=== PATIENT | female | born 1940 | race Caucasian/White ===

== ENCOUNTER 2019-09-14 11:46 | Emergency (ER) | payer OTHER ==
[~2019-09-14] VITALS: Ht 167.6 cm; Wt 84.5 kg
[2019-09-14 12:17] LABS: BASOPHILS # (AUTO) 0.1 X10'3 (0-0.2); BASOPHILS % (AUTO) 0.8 % (0-1); EOSINOPHILS # (AUTO) 0.1 X10'3 (0-0.9); EOSINOPHILS % (AUTO) 1.1 % (0-6); HEMATOCRIT 41.5 % (35.0-45.0); HEMOGLOBIN 13.8 g/dl (12.0-16.0); LYMPHOCYTES # (AUTO) 1.1 X10'3 (1.1-4.8); LYMPHOCYTES % (AUTO) 13.2 % (21-51); MEAN CORPUSCULAR HEMOGLOBIN 29.6 PG (27.0-31.0); MEAN CORPUSCULAR HGB CONC 33.2 g/dL (33.0-36.5); MEAN CORPUSCULAR VOLUME 89.1 FL (78-98); MEAN PLATELET VOLUME 10.2 FL (7.4-10.4); MONOCYTES # (AUTO) 0.4 X10'3 (0-0.9); MONOCYTES % (AUTO) 4.9 % (2-12); NEUTROPHILS # (AUTO) 6.9 X10'3 (1.8-7.7); PLATELET COUNT 205 X10'3 (140-440); RED BLOOD COUNT 4.66 X10'6 (4.20-5.60); RED CELL DISTRIBUTION WIDTH 14.4 % (11.5-14.5); WHITE BLOOD COUNT 8.6 X10'3 (4.5-11.0)
[2019-09-14 12:35] LABS: ALANINE AMINOTRANSFERASE 13 U/L (12-78); ALBUMIN 3.8 G/DL (3.4-5.0); ALKALINE PHOSPHATASE 82 IU/L (46-116); ANION GAP 8 (8-16); ASPARTATE AMINO TRANSFERASE 15 U/L (10-37); BILIRUBIN,TOTAL 0.8 MG/DL (0.1-1.0); BLOOD UREA NITROGEN 23 MG/DL (7-18); BUN/CREATININE RATIO 15.6 (6.6-38.0); CALCIUM 9.7 MG/DL (8.5-10.1); CHLORIDE 107 MMOL/L (99-107); CREATININE 1.47 MG/DL (0.40-0.90); GLUCOSE 151 MG/DL (70-104); POTASSIUM 4.6 MMOL/L (3.5-5.1); SODIUM 138 MMOL/L (135-145); TOTAL CARBON DIOXIDE 22.9 MMOL/L (24-32); TOTAL PROTEIN 7.7 G/DL (6.4-8.2); eGFR 34 ML/MIN
[2019-09-14 12:38] LABS: TROPONIN I < 0.04 NG/ML (0.0-0.05)
[2019-09-14] MEDS ORDERED: normal saline 1000ML IV soln IVB ONE (13:10)
[2019-09-14 13:15] LABS: CREATINE KINASE 65 U/L (26-192)
[2019-09-14] MEDS ORDERED: aspirin 81mg tablet.DR PO ONE (13:25)
[2019-09-14 13:30] VITALS: BP_DIAS 84
[2019-09-14] MEDS ORDERED: LISI10TA4 PO (13:30)
[2019-09-14] MEDS ORDERED: METF-950 PO (13:30)
[2019-09-14] MEDS ORDERED: METO25TA6 PO (13:30)
[2019-09-14] MEDS ORDERED: NPH,100V SQ (13:30)
[2019-09-14 14:30] VITALS: BP_SYST 153
== END 2019-09-14 15:40 | disposition home or self-care (01) ==
LOC: ER 11:46
DX: R29.810 Facial weakness (principal); M21.41 Flat foot [pes planus] (acquired), right foot; I25.10 Atherosclerotic heart disease of native coronary artery without angina pectoris; Z88.2 Allergy status to sulfonamides; Z79.899 Other long term (current) drug therapy
CPT/HCPCS: 36415; 70450; 71045; 80053; 82550; 84484; 85025; 93005; 93880; 99285; J7030

== ENCOUNTER → 2019-12-08 | Outpatient (CLI) | payer OTHER ==
[2019-12-08] VITALS (21 sets, daily range): BP systolic 115–147; BP diastolic 58–93
[~2019-12-08] MED LIST: LISI10TA4 PO; METF-950 PO; METO25TA6 PO; NPH,100V SQ
== END | disposition home or self-care (01) ==
LOC: CARD DIAG 10:06
PROVIDERS: ATTEND Internal Medicine Cardiovascular Disease
DX: R42 Dizziness and giddiness (principal)
CPT/HCPCS: 93660

== ENCOUNTER 2023-11-14 11:39 | Inpatient (IN) | payer MEDICARE, OTHER ==
[2023-11-14] VITALS (11 sets, daily range): BP systolic 101–145; BP diastolic 49–96; PULSE 97–106; RESP 18–30; TEMP 96.9–98.5; O2SAT 96
[~2023-11-14] VITALS: Ht 162.6 cm; Wt 81.4 kg
[~2023-11-14 11:39] MED LIST changes: +LISI10TA27 PO; -LISI10TA4 PO; +LOP25T PO; +METF-1203 PO; -METF-950 PO; -METO25TA6 PO
[2023-11-14 12:29] LABS: BASOPHILS # (AUTO) 0.1 X10'3 (0-0.2); BASOPHILS % (AUTO) 0.7 % (0-1); EOSINOPHILS % (AUTO) 0.3 % (0-6); HEMATOCRIT 23.3 % (35.0-45.0); LYMPHOCYTES # (AUTO) 0.6 X10'3 (1.1-4.8); LYMPHOCYTES % (AUTO) 4.8 % (21-51); MEAN CORPUSCULAR HEMOGLOBIN 23.5 PG (27.0-31.0); MEAN CORPUSCULAR HGB CONC 28.2 g/dL (33.0-36.5); MEAN CORPUSCULAR VOLUME 83.1 FL (78-98); MEAN PLATELET VOLUME 9.4 FL (7.4-10.4); MONOCYTES # (AUTO) 0.7 X10'3 (0-0.9); MONOCYTES % (AUTO) 5.1 % (2-12); NEUTROPHILS # (AUTO) 11.7 X10'3 (1.8-7.7); NEUTROPHILS % (AUTO) 89.1 % (42-75); PLATELET COUNT 316 X10'3 (140-440); RED CELL DISTRIBUTION WIDTH 19.1 % (11.5-14.5); WHITE BLOOD COUNT 13.2 X10'3 (4.5-11.0)
[2023-11-14 12:38] LABS: ALANINE AMINOTRANSFERASE 7 U/L (12-78); ALBUMIN/GLOBULIN RATIO 0.7 (1.1-1.5); ALKALINE PHOSPHATASE 108 IU/L (46-116); ANION GAP 15 (8-16); ASPARTATE AMINO TRANSFERASE 9 U/L (10-37); BILIRUBIN,TOTAL 2.2 MG/DL (0.1-1.0); BLOOD UREA NITROGEN 37 MG/DL (7-18); BUN/CREATININE RATIO 18.8 (10.0-20.0); CALCIUM 9.1 MG/DL (8.5-10.1); CHLORIDE 98 MMOL/L (99-107); CREATININE 1.97 MG/DL (0.40-0.90); GLUCOSE 283 MG/DL (70-104); SODIUM 132 MMOL/L (135-145); TOTAL CARBON DIOXIDE 19.2 MMOL/L (24-32); TOTAL PROTEIN 7.5 G/DL (6.4-8.2); eCRCL 19 ML/MIN; eGFR 24 ML/MIN
[2023-11-14 12:47] LABS: PRO BRAIN NATRIURETIC PEPTIDE 10360 PG/ML (0-450)
[2023-11-14 12:52] LABS: HEMOGLOBIN 6.6 g/dl (12.0-16.0)
[2023-11-14 12:56] LABS: ABG HCO3 16.1 mmol/L (21.0-28.0); ABG OXYGEN SATURATION 94.4 % (94.0-98.0); ABG PCO2 (T) 21.8 mmHg (32.0-45.0); ABG PH (T) 7.479 (7.350-7.450); ABG PO2 (T) 67.3 mmHg (83.0-108.0); ALLEN'S TEST POSITIVE; FCOHb 1.2 % (0.5-1.5); FHHb 5.5 % (0.0-5.0); FLOW 1 L/min; FMetHb 0.3 % (0.0-1.5); MODE NASAL CANNULA; PATIENT TEMPERATURE 35.5; TOTAL HEMOGLOBIN 6.8 G/dl (12.0-16.0)
[2023-11-14 13:06] LABS: PLATELET ESTIMATE NORMAL
[2023-11-14 13:08] LABS: BURR CELLS 1+; ELLIPTOCYTES FEW; POLYCHROMASIA 1+
[2023-11-14 13:09] LABS: ANISOCYTOSIS 2+
[2023-11-14] MEDS ORDERED: pantoprazole 40mg IV 80 MG in normal saline 100ml IV soln 100 ML IV ONE (14:25)
[2023-11-14] MEDS: pantoprazole 40 MG vial IV ONE (14:33)
[2023-11-14] MEDS: pantoprazole 40MG/NS 100ML BAG 100 ML IV ONE (14:39)
[2023-11-14] MEDS ORDERED: ATOR-2 PO (14:48)
[2023-11-14] MEDS ORDERED: SITA50TA7 PO (14:48)
[2023-11-14] MEDS ORDERED: FERR325T29 PO (14:48)
[2023-11-14] MEDS ORDERED: APIX2.5T PO (14:48)
[2023-11-14] MEDS ORDERED: LANTUS SQ (14:51)
[2023-11-14] MEDS ORDERED: vitamin D3 PO (14:51)
[2023-11-14] MEDS ORDERED: vitamin E PO (14:51)
[2023-11-14] MEDS ORDERED: INSU100C10 SQ (14:51)
[2023-11-14] MEDS ORDERED: potassium Cl 20 mEq SR tablet PO PRN ×2 (15:15)
[2023-11-14] MEDS ORDERED: magnesium sulf-water 4G/100mL 100 ML IV PRN (15:15)
[2023-11-14] MEDS ORDERED: magnesium hydroxide 30ml (MOM) UD suspension PO PRN (15:15)
[2023-11-14] MEDS ORDERED: potassium Cl 40MEQ/1/2NS 520ml 520 ML IV PRN (15:15)
[2023-11-14] MEDS ORDERED: magnesium sulf-water 2g/50mL 50 ML IV PRN (15:15)
[2023-11-14] MEDS ORDERED: acetaminophen 650mg rectal suppository RC PRN (15:15)
[2023-11-14] MEDS ORDERED: diphenhydrAMINE 25mg capsule PO PRN (15:15)
[2023-11-14] MEDS ORDERED: HYDROcodone/acetaminophen 5mg/325mg tablet PO PRN (15:15)
[2023-11-14] MEDS ORDERED: HYDROcodone/acetaminophen 10/325mg tab PO PRN (15:15)
[2023-11-14] MEDS ORDERED: bisacodyl 10mg suppository rectal RC PRN (15:15)
[2023-11-14] MEDS ORDERED: magnesium Cl slow-release 64mg tablet PO PRN (15:15)
[2023-11-14] MEDS ORDERED: acetaminophen 325mg tablet PO PRN (15:15)
[2023-11-14] MEDS: normal saline 1000ml 1,000 ML IV SCH (15:15)
[2023-11-14] MEDS ORDERED: mag hydrox/Alum hydrox/simeth 30ml oral suspension PO PRN (15:15)
[2023-11-14] MEDS ORDERED: ASPI81TA52 PO (15:23)
[2023-11-14] MEDS ORDERED: OMEP40CA21 PO (15:23)
[2023-11-14] MEDS ORDERED: vitamin A PO (15:23)
[2023-11-14] MEDS ORDERED: ASCO500C17 PO (15:23)
[2023-11-14 16:32] LABS: HEMOGLOBIN A1C 6.1 % (4.5-6.2)
[2023-11-14] MEDS ORDERED: ASCO-22 PO (17:33)
[2023-11-14] MEDS ORDERED: FER325T PO (17:33)
[2023-11-14] MEDS: aspirin 81mg, enteric-coated 1 TAB TABLET.DR PO SCH (18:25)
[2023-11-14] MEDS ORDERED: DEXTROSE 15 GM of carb/4 tabs (each vial/BOTTLE has 4 tablets) PO PRN ×2 (18:55)
[2023-11-14] MEDS: PERFLUTREN PROTEIN-A MICROSPHR (Optison) 0.22 MG/ML 3ML VIAL IV ONE (19:53)
[2023-11-14] MEDS: ascorbic acid 500mg tablet PO SCH (20:00)
[2023-11-14] MEDS: ferrous sulfate 325mg tablet PO SCH (20:00)
[2023-11-14] MEDS: pantoprazole 40mg Tablet.DR PO SCH (20:00)
[2023-11-14] MEDS: docusate sod 100mg capsule PO SCH (20:00)
[2023-11-14 20:07] LABS: % IRON SATURATION 4 % (11-46); IRON 11 UG/DL (49-151); TOTAL IRON BINDING CAPACITY 304 UG/DL (259-388)
[2023-11-14] MEDS: K and/or MAG REPLACEMENT MC SCH (20:08)
[2023-11-14 20:17] LABS: BILIRUBIN,DIRECT 0.5 MG/DL (0-0.3)
[2023-11-14] MEDS: pantoprazole 40mg Tablet.DR PO ONE (21:26)
[2023-11-14] MEDS: ferrous sulfate 325mg tablet PO ONE (21:26)
[2023-11-14] MEDS: ascorbic acid 500mg tablet PO ONE (21:26)
[2023-11-14] MEDS: insulin glargine (Lantus) pen - multi-dose SQ SCH (21:30)
[2023-11-14] MEDS: INSULIN LISPRO 100 UNIT/ML INSULN.PEN MULTI-DOSE SQ SCH (21:31)
[2023-11-14 22:37] LABS: HEMATOCRIT 28.6 % (35.0-45.0); MEAN CORPUSCULAR HEMOGLOBIN 26.8 PG (27.0-31.0); MEAN CORPUSCULAR HGB CONC 31.6 g/dL (33.0-36.5); MEAN PLATELET VOLUME 9.5 FL (7.4-10.4); PLATELET COUNT 234 X10'3 (140-440); RED BLOOD COUNT 3.37 X10'6 (4.20-5.60); RED CELL DISTRIBUTION WIDTH 17.5 % (11.5-14.5); WHITE BLOOD COUNT 12.1 X10'3 (4.5-11.0)
[2023-11-15] VITALS (20 sets, daily range): BP systolic 100–120; BP diastolic 48–61; PULSE 70–98; RESP 16–28; TEMP 97.2–98.6; O2SAT 90–98
[2023-11-15 06:54] LABS: EOSINOPHILS # (AUTO) 0.3 X10'3 (0-0.9); HEMATOCRIT 28.5 % (35.0-45.0)
[2023-11-15 06:58] LABS: BASOPHILS # (AUTO) 0.1 X10'3 (0-0.2); BASOPHILS % (AUTO) 0.8 % (0-1); EOSINOPHILS % (AUTO) 2.9 % (0-6); HEMOGLOBIN 9.1 g/dl (12.0-16.0); LYMPHOCYTES # (AUTO) 1.1 X10'3 (1.1-4.8); LYMPHOCYTES % (AUTO) 10.9 % (21-51); MEAN CORPUSCULAR HEMOGLOBIN 26.9 PG (27.0-31.0); MEAN CORPUSCULAR HGB CONC 31.9 g/dL (33.0-36.5); MEAN CORPUSCULAR VOLUME 84.2 FL (78-98); MEAN PLATELET VOLUME 9.8 FL (7.4-10.4); MONOCYTES # (AUTO) 0.8 X10'3 (0-0.9); MONOCYTES % (AUTO) 7.6 % (2-12); NEUTROPHILS # (AUTO) 8.1 X10'3 (1.8-7.7); NEUTROPHILS % (AUTO) 77.8 % (42-75); PLATELET COUNT 250 X10'3 (140-440); RED BLOOD COUNT 3.38 X10'6 (4.20-5.60); RED CELL DISTRIBUTION WIDTH 17.3 % (11.5-14.5); WHITE BLOOD COUNT 10.4 X10'3 (4.5-11.0)
[2023-11-15 07:33] LABS: ALANINE AMINOTRANSFERASE 11 U/L (12-78); ALBUMIN 2.6 G/DL (3.4-5.0); ALBUMIN/GLOBULIN RATIO 0.7 (1.1-1.5); ALKALINE PHOSPHATASE 91 IU/L (46-116); ANION GAP 10 (8-16); ASPARTATE AMINO TRANSFERASE 13 U/L (10-37); BILIRUBIN,TOTAL 3.9 MG/DL (0.1-1.0); BLOOD UREA NITROGEN 34 MG/DL (7-18); BUN/CREATININE RATIO 19.2 (10.0-20.0); CALCIUM 8.5 MG/DL (8.5-10.1); CHLORIDE 101 MMOL/L (99-107); CHOL/HDL RATIO 2.8 (0.00-4.99); CHOLESTEROL 78 MG/DL (0-200); CREATININE 1.77 MG/DL (0.40-0.90); GLUCOSE 166 MG/DL (70-104); HDL CHOLESTEROL 28 MG/DL (35-60); LDL CHOLESTEROL 51 MG/DL (50-100); MAGNESIUM 1.9 MG/DL (1.5-2.4); PHOSPHORUS 3.5 MG/DL (2.3-4.5); POTASSIUM 3.9 MMOL/L (3.5-5.1); SODIUM 132 MMOL/L (135-145); TOTAL CARBON DIOXIDE 21.1 MMOL/L (24-32); TOTAL PROTEIN 6.6 G/DL (6.4-8.2); TRIGLYCERIDES 69 MG/DL (20-135); eCRCL 21 ML/MIN; eGFR 27 ML/MIN
[2023-11-15 07:36] LABS: ANISOCYTOSIS 1+; NUCLEATED RED BLOOD CELLS 4 /100WBC (0-0); PLATELET ESTIMATE NORMAL; TOTAL CELLS COUNTED 100
[2023-11-15 07:37] LABS: ELLIPTOCYTES 1+; GIANT PLATELET FEW; LARGE PLATELETS FEW; POLYCHROMASIA 2+
[2023-11-15 07:38] LABS: ACANTHOCYTES 1+; BURR CELLS 2+; SCHISTOCYTES FEW
[2023-11-15] MEDS: atorvastatin 20mg tablet PO SCH (08:00)
[2023-11-15] MEDS ORDERED: VITAMIN A PO SCH (08:00)
[2023-11-15] MEDS ORDERED: VITAMIN E 200 UNIT PO SCH (08:00)
[2023-11-15] MEDS: multivitamins, therapeutics tablet PO SCH (08:00)
[2023-11-15] MEDS ORDERED: simethicone 40mg/0.6ml oral drops 30ml ONE (09:00)
[2023-11-15] MEDS: furosemide 20 MG/2 ML vial IV ONE (11:08)
[2023-11-15] MEDS ORDERED: diphenhydrAMINE 50 mg/ml inj ONE (13:27)
[2023-11-15] MEDS ORDERED: MIDAZolam 1 MG/ML 5ML VIAL ONE (13:27)
[2023-11-15] MEDS ORDERED: LIDOcaine 2% Viscous 15ml cup ONE (13:27)
[2023-11-15] MEDS ORDERED: fentaNYL/PF 50MCG/1 ML 2ML syringe ONE (13:27)
[2023-11-15 19:51] LABS: BASOPHILS # (AUTO) 0.1 X10'3 (0-0.2); EOSINOPHILS # (AUTO) 0.6 X10'3 (0-0.9); HEMATOCRIT 30.3 % (35.0-45.0); LYMPHOCYTES # (AUTO) 0.9 X10'3 (1.1-4.8)
[2023-11-15 19:53] LABS: BASOPHILS % (AUTO) 0.9 % (0-1); EOSINOPHILS % (AUTO) 5.3 % (0-6); HEMOGLOBIN 9.3 g/dl (12.0-16.0); LYMPHOCYTES % (AUTO) 8.3 % (21-51); MEAN CORPUSCULAR HGB CONC 30.8 g/dL (33.0-36.5); MEAN CORPUSCULAR VOLUME 84.4 FL (78-98); MEAN PLATELET VOLUME 9.7 FL (7.4-10.4); MONOCYTES # (AUTO) 0.6 X10'3 (0-0.9); MONOCYTES % (AUTO) 5.6 % (2-12); NEUTROPHILS # (AUTO) 8.9 X10'3 (1.8-7.7); NEUTROPHILS % (AUTO) 79.9 % (42-75); PLATELET COUNT 241 X10'3 (140-440); RED BLOOD COUNT 3.59 X10'6 (4.20-5.60); RED CELL DISTRIBUTION WIDTH 17.7 % (11.5-14.5); WHITE BLOOD COUNT 11.1 X10'3 (4.5-11.0)
[2023-11-15] MEDS ORDERED: pantoprazole 40mg Tablet.DR PO SCH (20:00)
[2023-11-15] MEDS: carVEDilol 3.125mg tablet PO SCH (20:28)
[2023-11-15] MEDS: methylPREDNISolone sod succ 125mg/2ml vial IV ONE (20:28)
[2023-11-15] MEDS: methylPREDNISolone sod succ/PF 40mg inj. IV SCH (22:27)
[2023-11-15] MEDS: piperacillin/tazo 3.375gm/50ml 50 ML IV SCH (23:46)
[2023-11-16] VITALS (10 sets, daily range): BP systolic 91–102; BP diastolic 42–49; PULSE 68–105; RESP 14–23; TEMP 97–97.6; O2SAT 92–97
[2023-11-16] MEDS: furosemide 20 MG/2 ML vial IV SCH (07:24)
[2023-11-16] MEDS: EMPAGLIFLOZIN 10 MG TABLET PO SCH (07:25)
[2023-11-16] MEDS: pantoprazole 40mg Tablet.DR PO SCH (07:26)
[2023-11-16] MEDS: lisinopril 5mg tablet PO SCH (07:27)
[2023-11-16] MEDS: ferrous sulfate 325mg tablet PO SCH (07:32)
[2023-11-16 08:35] LABS: BASOPHILS % (AUTO) 0.1 % (0-1); EOSINOPHILS % (AUTO) 0 % (0-6); HEMATOCRIT 29.7 % (35.0-45.0); HEMOGLOBIN 9.3 g/dl (12.0-16.0); LYMPHOCYTES # (AUTO) 0.3 X10'3 (1.1-4.8); LYMPHOCYTES % (AUTO) 3.9 % (21-51); MEAN CORPUSCULAR HEMOGLOBIN 26.5 PG (27.0-31.0); MEAN CORPUSCULAR HGB CONC 31.4 g/dL (33.0-36.5); MEAN CORPUSCULAR VOLUME 84.2 FL (78-98); MONOCYTES # (AUTO) 0.1 X10'3 (0-0.9); MONOCYTES % (AUTO) 0.9 % (2-12); NEUTROPHILS # (AUTO) 7.9 X10'3 (1.8-7.7); NEUTROPHILS % (AUTO) 95.1 % (42-75); PLATELET COUNT 235 X10'3 (140-440); RED BLOOD COUNT 3.53 X10'6 (4.20-5.60); RED CELL DISTRIBUTION WIDTH 17.9 % (11.5-14.5); WHITE BLOOD COUNT 8.3 X10'3 (4.5-11.0)
[2023-11-16 08:40] LABS: RED BLOOD COUNT 3.47 X10'6 (4.20-5.60); RETICULOCYTE % (AUTO) 5.3 % (0.5-1.5)
[2023-11-16 09:15] LABS: ALANINE AMINOTRANSFERASE 7 U/L (12-78); ALBUMIN 2.7 G/DL (3.4-5.0); ALBUMIN/GLOBULIN RATIO 0.7 (1.1-1.5); ALKALINE PHOSPHATASE 95 IU/L (46-116); ANION GAP 12 (8-16); ASPARTATE AMINO TRANSFERASE 11 U/L (10-37); BILIRUBIN,TOTAL 2.2 MG/DL (0.1-1.0); BLOOD UREA NITROGEN 37 MG/DL (7-18); BUN/CREATININE RATIO 19.5 (10.0-20.0); CALCIUM 8.7 MG/DL (8.5-10.1); CHLORIDE 98 MMOL/L (99-107); GLUCOSE 247 MG/DL (70-104); MAGNESIUM 1.9 MG/DL (1.5-2.4); PHOSPHORUS 4.6 MG/DL (2.3-4.5); POTASSIUM 4.5 MMOL/L (3.5-5.1); SODIUM 133 MMOL/L (135-145); TOTAL CARBON DIOXIDE 22.8 MMOL/L (24-32); TOTAL PROTEIN 6.6 G/DL (6.4-8.2); eCRCL 19 ML/MIN; eGFR 25 ML/MIN
[2023-11-16 11:28] LABS: LACTATE DEHYDROGENASE 308 U/L (81-234)
[2023-11-16 14:05] LABS: BASOPHILS % (AUTO) 0.1 % (0-1); LYMPHOCYTES # (AUTO) 0.4 X10'3 (1.1-4.8); MONOCYTES # (AUTO) 0.1 X10'3 (0-0.9); NEUTROPHILS # (AUTO) 7.5 X10'3 (1.8-7.7)
[2023-11-16 14:06] LABS: EOSINOPHILS % (AUTO) 0.1 % (0-6); HEMATOCRIT 29.1 % (35.0-45.0); HEMOGLOBIN 9.1 g/dl (12.0-16.0); LYMPHOCYTES % (AUTO) 4.4 % (21-51); MEAN CORPUSCULAR HEMOGLOBIN 26.5 PG (27.0-31.0); MEAN CORPUSCULAR HGB CONC 31.3 g/dL (33.0-36.5); MEAN CORPUSCULAR VOLUME 84.8 FL (78-98); MEAN PLATELET VOLUME 10.1 FL (7.4-10.4); MONOCYTES % (AUTO) 1.2 % (2-12); NEUTROPHILS % (AUTO) 94.2 % (42-75); PLATELET COUNT 248 X10'3 (140-440); RED BLOOD COUNT 3.43 X10'6 (4.20-5.60); RED CELL DISTRIBUTION WIDTH 18.2 % (11.5-14.5)
[2023-11-16] MEDS: DOBUTamine-DoBUTrex 500mg/D5W 250 ML IV SCH (19:26)
[2023-11-16 19:50] LABS: BASOPHILS % (AUTO) 0.1 % (0-1); EOSINOPHILS % (AUTO) 0.1 % (0-6); HEMATOCRIT 29.6 % (35.0-45.0); HEMOGLOBIN 9.1 g/dl (12.0-16.0); LYMPHOCYTES # (AUTO) 0.4 X10'3 (1.1-4.8); LYMPHOCYTES % (AUTO) 3.4 % (21-51); MEAN CORPUSCULAR HEMOGLOBIN 25.5 PG (27.0-31.0); MEAN CORPUSCULAR HGB CONC 30.8 g/dL (33.0-36.5); MEAN PLATELET VOLUME 9.9 FL (7.4-10.4); MONOCYTES # (AUTO) 0.2 X10'3 (0-0.9); MONOCYTES % (AUTO) 1.6 % (2-12); NEUTROPHILS # (AUTO) 9.9 X10'3 (1.8-7.7); NEUTROPHILS % (AUTO) 94.8 % (42-75); PLATELET COUNT 264 X10'3 (140-440); RED BLOOD COUNT 3.56 X10'6 (4.20-5.60); RED CELL DISTRIBUTION WIDTH 18.2 % (11.5-14.5); WHITE BLOOD COUNT 10.5 X10'3 (4.5-11.0)
[2023-11-16] MEDS: piperacillin/tazo 3.375gm/50ml 50 ML IV SCH (23:02)
[2023-11-17] VITALS (29 sets, daily range): BP systolic 77–107; BP diastolic 34–56; PULSE 81–103; RESP 14–18; TEMP 97.3–97.9; O2SAT 94–97
[2023-11-17 08:28] LABS: BASOPHILS % (AUTO) 0.1 % (0-1); EOSINOPHILS % (AUTO) 0 % (0-6); HEMATOCRIT 28.1 % (35.0-45.0); HEMOGLOBIN 8.7 g/dl (12.0-16.0); LYMPHOCYTES # (AUTO) 0.4 X10'3 (1.1-4.8); MEAN CORPUSCULAR VOLUME 83.7 FL (78-98); MEAN PLATELET VOLUME 10.1 FL (7.4-10.4); MONOCYTES # (AUTO) 0.4 X10'3 (0-0.9); MONOCYTES % (AUTO) 2.9 % (2-12); NEUTROPHILS # (AUTO) 12.5 X10'3 (1.8-7.7); PLATELET COUNT 278 X10'3 (140-440); RED BLOOD COUNT 3.36 X10'6 (4.20-5.60); RED CELL DISTRIBUTION WIDTH 18.1 % (11.5-14.5); WHITE BLOOD COUNT 13.3 X10'3 (4.5-11.0)
[2023-11-17 08:47] LABS: ALBUMIN 2.8 G/DL (3.4-5.0); ALBUMIN/GLOBULIN RATIO 0.7 (1.1-1.5); ALKALINE PHOSPHATASE 85 IU/L (46-116); ANION GAP 13 (8-16); ASPARTATE AMINO TRANSFERASE 15 U/L (10-37); BILIRUBIN,TOTAL 1.7 MG/DL (0.1-1.0); BLOOD UREA NITROGEN 43 MG/DL (7-18); BUN/CREATININE RATIO 18.2 (10.0-20.0); CALCIUM 8.9 MG/DL (8.5-10.1); CHLORIDE 97 MMOL/L (99-107); CREATININE 2.36 MG/DL (0.40-0.90); GLUCOSE 219 MG/DL (70-104); PHOSPHORUS 5.3 MG/DL (2.3-4.5); POTASSIUM 3.5 MMOL/L (3.5-5.1); SODIUM 134 MMOL/L (135-145); TOTAL CARBON DIOXIDE 23.9 MMOL/L (24-32); TOTAL PROTEIN 6.6 G/DL (6.4-8.2); eCRCL 16 ML/MIN; eGFR 20 ML/MIN
[2023-11-17 08:48] LABS: ALANINE AMINOTRANSFERASE 6 U/L (12-78)
[2023-11-17 13:42] LABS: BASOPHILS % (AUTO) 0.1 % (0-1); EOSINOPHILS % (AUTO) 0 % (0-6); HEMOGLOBIN 8.7 g/dl (12.0-16.0); LYMPHOCYTES # (AUTO) 0.3 X10'3 (1.1-4.8); LYMPHOCYTES % (AUTO) 1.8 % (21-51); MEAN CORPUSCULAR HEMOGLOBIN 25.8 PG (27.0-31.0); MEAN CORPUSCULAR VOLUME 83.3 FL (78-98); MEAN PLATELET VOLUME 9.7 FL (7.4-10.4); MONOCYTES # (AUTO) 0.4 X10'3 (0-0.9); MONOCYTES % (AUTO) 2.5 % (2-12); NEUTROPHILS # (AUTO) 13.7 X10'3 (1.8-7.7); NEUTROPHILS % (AUTO) 95.6 % (42-75); PLATELET COUNT 272 X10'3 (140-440); RED BLOOD COUNT 3.36 X10'6 (4.20-5.60); RED CELL DISTRIBUTION WIDTH 18.7 % (11.5-14.5); WHITE BLOOD COUNT 14.3 X10'3 (4.5-11.0)
[2023-11-17] MEDS: normal saline 500ml IV soln 500 ML IV ONE (17:04)
[2023-11-17 20:45] LABS: BASOPHILS % (AUTO) 0.1 % (0-1); EOSINOPHILS % (AUTO) 0 % (0-6); HEMATOCRIT 27.4 % (35.0-45.0); HEMOGLOBIN 8.5 g/dl (12.0-16.0); LYMPHOCYTES # (AUTO) 0.2 X10'3 (1.1-4.8); MEAN CORPUSCULAR HEMOGLOBIN 25.8 PG (27.0-31.0); MEAN CORPUSCULAR VOLUME 83.3 FL (78-98); MEAN PLATELET VOLUME 9.7 FL (7.4-10.4); MONOCYTES # (AUTO) 0.2 X10'3 (0-0.9); MONOCYTES % (AUTO) 1.9 % (2-12); NEUTROPHILS # (AUTO) 11.8 X10'3 (1.8-7.7); PLATELET COUNT 257 X10'3 (140-440); RED BLOOD COUNT 3.29 X10'6 (4.20-5.60); RED CELL DISTRIBUTION WIDTH 18.9 % (11.5-14.5); WHITE BLOOD COUNT 12.3 X10'3 (4.5-11.0)
[2023-11-17] MEDS ORDERED: albumin (human) 25% 100 ML IV solution IV ONE (21:20)
[2023-11-17 21:30] LABS: PLATELET ESTIMATE NORMAL
[2023-11-17 21:31] LABS: ACANTHOCYTES 2+; ANISOCYTOSIS 2+; ELLIPTOCYTES 1+; HYPOCHROMASIA 1+; POLYCHROMASIA 1+; SCHISTOCYTES FEW
[2023-11-18] VITALS (24 sets, daily range): BP systolic 79–104; BP diastolic 32–53; PULSE 84–115; RESP 10–20; TEMP 98.6; O2SAT 92–99
[2023-11-18 00:19] LABS: BASOPHILS % (AUTO) 0 % (0-1); EOSINOPHILS % (AUTO) 0 % (0-6); HEMATOCRIT 26.6 % (35.0-45.0); HEMOGLOBIN 8.4 g/dl (12.0-16.0); LYMPHOCYTES # (AUTO) 0.3 X10'3 (1.1-4.8); LYMPHOCYTES % (AUTO) 2.2 % (21-51); MEAN CORPUSCULAR HEMOGLOBIN 26.3 PG (27.0-31.0); MEAN CORPUSCULAR HGB CONC 31.6 g/dL (33.0-36.5); MEAN CORPUSCULAR VOLUME 83.1 FL (78-98); MEAN PLATELET VOLUME 9.7 FL (7.4-10.4); MONOCYTES # (AUTO) 0.3 X10'3 (0-0.9); NEUTROPHILS # (AUTO) 12.2 X10'3 (1.8-7.7); NEUTROPHILS % (AUTO) 95.8 % (42-75); PLATELET COUNT 252 X10'3 (140-440); RED CELL DISTRIBUTION WIDTH 18.6 % (11.5-14.5); WHITE BLOOD COUNT 12.8 X10'3 (4.5-11.0)
[2023-11-18 00:26] LABS: ALANINE AMINOTRANSFERASE 10 U/L (12-78); ALBUMIN 2.6 G/DL (3.4-5.0); ALBUMIN/GLOBULIN RATIO 0.8 (1.1-1.5); ALKALINE PHOSPHATASE 73 IU/L (46-116); ANION GAP 14 (8-16); ASPARTATE AMINO TRANSFERASE 10 U/L (10-37); BILIRUBIN,TOTAL 1.6 MG/DL (0.1-1.0); BLOOD UREA NITROGEN 41 MG/DL (7-18); BUN/CREATININE RATIO 15.5 (10.0-20.0); CALCIUM 8.2 MG/DL (8.5-10.1); CHLORIDE 100 MMOL/L (99-107); CREATININE 2.64 MG/DL (0.40-0.90); GLUCOSE 203 MG/DL (70-104); MAGNESIUM 1.9 MG/DL (1.5-2.4); PHOSPHORUS 5.9 MG/DL (2.3-4.5); POTASSIUM 3.3 MMOL/L (3.5-5.1); SODIUM 135 MMOL/L (135-145); TOTAL CARBON DIOXIDE 20.6 MMOL/L (24-32); eCRCL 14 ML/MIN; eGFR 17 ML/MIN
[2023-11-18 00:47] LABS: ANISOCYTOSIS 2+; PLATELET ESTIMATE NORMAL
[2023-11-18 00:51] LABS: ACANTHOCYTES FEW; BURR CELLS FEW; ELLIPTOCYTES FEW; HYPOCHROMASIA 1+; POLYCHROMASIA 1+
[2023-11-18 00:52] LABS: POIKILOCYTOSIS 2+; TARGET CELLS FEW
[2023-11-18] MEDS: acetaminophen 325mg tablet PO PRN (03:41)
[2023-11-18] MEDS ORDERED: magnesium sulf-water 4G/100mL 100 ML IV PRN (04:15)
[2023-11-18] MEDS ORDERED: potassium Cl 40MEQ/1/2NS 520ml 520 ML IV PRN (04:15)
[2023-11-18] MEDS ORDERED: potassium Cl 20 mEq SR tablet PO PRN (04:15)
[2023-11-18] MEDS ORDERED: magnesium sulf-water 2g/50mL 50 ML IV PRN (04:15)
[2023-11-18] MEDS: potassium Cl 20 mEq SR tablet PO PRN (04:42)
[2023-11-18] MEDS ORDERED: VITA200T8 PO (08:38)
[2023-11-18] MEDS ORDERED: CHOL100017 PO (08:38)
[2023-11-18] MEDS: ondansetron/PF 4mg/2ml inj IV PRN (09:01)
[2023-11-18] MEDS: ringers solution, lactated 500ml IV solution IV ONE (09:18)
[2023-11-18] MEDS: ringers solution, lacted 1,000 ML IV ONE ×2 (11:00→14:34)
[2023-11-18] MEDS: midodrine 5mg tablet PO SCH ×2 (11:06→12:00)
[2023-11-18 14:18] LABS: BILIRUBIN,URINE NEGATIVE (Neg); CLARITY,URINE SLIGHTLY CLOUDY (Clear); COLOR,URINE YELLOW (Yellow); GLUCOSE, URINE >=1000 mg/dl (Neg); KETONES,URINE NEGATIVE (Neg); LEUKOCYTE ESTERASE ,URINE NEGATIVE (Neg); NITRITES, URINE NEGATIVE (Neg); OCCULT BLOOD,URINE MODERATE (Neg); PROTEIN,URINE NEGATIVE (Neg); UROBILINOGEN,URINE 0.2 E.U/dL (0.2-1.0)
[2023-11-18 14:20] LABS: URINE AMPHETAMINE SCREEN NEGATIVE (Neg); URINE BARBITUATE SCREEN NEGATIVE (Neg); URINE BENZODIAZEPINES SCREEN NEGATIVE (Neg); URINE CANNABINOID SCREEN NEGATIVE (Neg); URINE COCAINE SCREEN NEGATIVE (Neg); URINE METHADONE SCREEN NEGATIVE (Neg); URINE OPIATE SCREEN NEGATIVE (Neg); URINE PHENCYCLIDINE SCREEN NEGATIVE (Neg)
[2023-11-18 14:21] LABS: UA COLLECTION TYPE FOLEY CATH
[2023-11-18 14:35] LABS: RBC,URINE 50-100 /HPF (0-2)
[2023-11-18 14:37] LABS: BACTERIA,URINE NONE SEEN /HPF (Neg); MUCUS STRANDS NONE SEEN /LPF (Neg); SQUAMOUS EPITHELIAL CELL,UR MODERATE /LPF (FEW); TRANSITIONAL EPI CELLS,URINE FEW /HPF
[2023-11-18] MEDS: albumin (human) 25% 100 ML IV solution IV ONE (16:23)
[2023-11-18] MEDS: INSULIN LISPRO 100 UNIT/ML INSULN.PEN MULTI-DOSE SQ SCH (17:52)
[2023-11-18] MEDS: normal saline 500ml IV soln 500 ML IV ONE (20:38)
[2023-11-19] VITALS (19 sets, daily range): BP systolic 85–122; BP diastolic 39–64; PULSE 75–93; RESP 12–20; TEMP 97.2–97.9; O2SAT 93–100
[2023-11-19 06:05] LABS: BASOPHILS # (AUTO) 0.1 X10'3 (0-0.2); BASOPHILS % (AUTO) 0.5 % (0-1); EOSINOPHILS % (AUTO) 0 % (0-6); HEMOGLOBIN 8.1 g/dl (12.0-16.0); LYMPHOCYTES # (AUTO) 0.4 X10'3 (1.1-4.8); LYMPHOCYTES % (AUTO) 3.4 % (21-51); MEAN CORPUSCULAR HEMOGLOBIN 26.1 PG (27.0-31.0); MEAN CORPUSCULAR HGB CONC 31.3 g/dL (33.0-36.5); MEAN CORPUSCULAR VOLUME 83.3 FL (78-98); MEAN PLATELET VOLUME 9.8 FL (7.4-10.4); MONOCYTES # (AUTO) 0.5 X10'3 (0-0.9); MONOCYTES % (AUTO) 4.2 % (2-12); NEUTROPHILS # (AUTO) 11.8 X10'3 (1.8-7.7); NEUTROPHILS % (AUTO) 91.9 % (42-75); RED BLOOD COUNT 3.12 X10'6 (4.20-5.60); RED CELL DISTRIBUTION WIDTH 19.1 % (11.5-14.5); WHITE BLOOD COUNT 12.8 X10'3 (4.5-11.0)
[2023-11-19 06:09] LABS: PLATELET COUNT 225 X10'3 (140-440)
[2023-11-19 06:18] LABS: ALANINE AMINOTRANSFERASE 21 U/L (12-78); ALBUMIN 3.6 G/DL (3.4-5.0); ALBUMIN/GLOBULIN RATIO 1.5 (1.1-1.5); ALKALINE PHOSPHATASE 62 IU/L (46-116); ANION GAP 9 (8-16); ASPARTATE AMINO TRANSFERASE 14 U/L (10-37); BILIRUBIN,TOTAL 1.5 MG/DL (0.1-1.0); BLOOD UREA NITROGEN 46 MG/DL (7-18); BUN/CREATININE RATIO 19.2 (10.0-20.0); CALCIUM 8.7 MG/DL (8.5-10.1); CHLORIDE 100 MMOL/L (99-107); CREATININE 2.39 MG/DL (0.40-0.90); GLUCOSE 183 MG/DL (70-104); MAGNESIUM 2.1 MG/DL (1.5-2.4); PHOSPHORUS 6.2 MG/DL (2.3-4.5); POTASSIUM 4.4 MMOL/L (3.5-5.1); SODIUM 131 MMOL/L (135-145); TOTAL CARBON DIOXIDE 22.4 MMOL/L (24-32); eCRCL 15 ML/MIN; eGFR 19 ML/MIN
[2023-11-19] MEDS: sevelamer carbonate 0.8gm powder pkt PO SCH (15:23)
[2023-11-19] MEDS ORDERED: apixaban 2.5mg tablet PO SCH (20:00)
[2023-11-19] MEDS: apixaban 2.5mg tablet PO SCH (20:04)
[2023-11-20 02:00] VITALS: BP 120/67; PULSE 81; TEMP 97.7; O2SAT 97
[2023-11-20 06:00] VITALS: BP 141/60; PULSE 86; RESP 18; TEMP 97.3; O2SAT 95
[2023-11-20 07:09] LABS: ALANINE AMINOTRANSFERASE 23 U/L (12-78); ALBUMIN 3.3 G/DL (3.4-5.0); ALBUMIN/GLOBULIN RATIO 1.3 (1.1-1.5); ALKALINE PHOSPHATASE 53 IU/L (46-116); ANION GAP 10 (8-16); ASPARTATE AMINO TRANSFERASE 18 U/L (10-37); BILIRUBIN,TOTAL 1.3 MG/DL (0.1-1.0); BLOOD UREA NITROGEN 51 MG/DL (7-18); CALCIUM 8.5 MG/DL (8.5-10.1); CHLORIDE 100 MMOL/L (99-107); CREATININE 2.04 MG/DL (0.40-0.90); GLUCOSE 86 MG/DL (70-104); POTASSIUM 3.7 MMOL/L (3.5-5.1); SODIUM 133 MMOL/L (135-145); TOTAL CARBON DIOXIDE 22.6 MMOL/L (24-32); TOTAL PROTEIN 5.8 G/DL (6.4-8.2); eCRCL 18 ML/MIN; eGFR 23 ML/MIN
[2023-11-20 07:15] LABS: BASOPHILS % (AUTO) 0 % (0-1); EOSINOPHILS # (AUTO) 0.1 X10'3 (0-0.9); EOSINOPHILS % (AUTO) 0.5 % (0-6); HEMATOCRIT 27.4 % (35.0-45.0); HEMOGLOBIN 8.5 g/dl (12.0-16.0); LYMPHOCYTES # (AUTO) 1.5 X10'3 (1.1-4.8); LYMPHOCYTES % (AUTO) 12.3 % (21-51); MEAN CORPUSCULAR HEMOGLOBIN 25.7 PG (27.0-31.0); MEAN CORPUSCULAR HGB CONC 30.8 g/dL (33.0-36.5); MEAN CORPUSCULAR VOLUME 83.4 FL (78-98); MEAN PLATELET VOLUME 9.6 FL (7.4-10.4); MONOCYTES # (AUTO) 1.1 X10'3 (0-0.9); MONOCYTES % (AUTO) 9.1 % (2-12); NEUTROPHILS # (AUTO) 9.8 X10'3 (1.8-7.7); NEUTROPHILS % (AUTO) 78.1 % (42-75); PLATELET COUNT 283 X10'3 (140-440); RED BLOOD COUNT 3.29 X10'6 (4.20-5.60); WHITE BLOOD COUNT 12.6 X10'3 (4.5-11.0)
[2023-11-20 08:00] VITALS: RESP 18; O2SAT 95
[2023-11-20] MEDS ORDERED: EMPA10TA PO (10:28)
[2023-11-20] MEDS ORDERED: MIDO10TA PO (10:29)
[2023-11-20 11:00] VITALS: BP 116/58; PULSE 88; RESP 18; TEMP 98; O2SAT 95
[2023-11-20] MEDS: lisinopril 2.5mg tablet PO ONE (11:58)
[2023-11-20] MEDS: carVEDilol 3.125mg tablet PO ONE (12:17)
[2023-11-20] MEDS ORDERED: CARV3.1289 PO (12:35)
[2023-11-20] MEDS ORDERED: LISI2.5T14 PO (12:35)
[2023-11-20] MEDS ORDERED: AMOX-580 PO (12:37)
[2023-11-20] MEDS ORDERED: PRED10TA23 PO (12:40)
[2023-11-20 13:58] VITALS: BP 117/56
[2023-11-20 15:00] VITALS: BP_SYST 109; BP_SYST 116; BP_DIAS 58; BP_DIAS 88; PULSE 92; RESP 17; TEMP 97.6; O2SAT 93
== END 2023-11-20 16:55 | disposition home health service (06) | DRG 377 ==
LOC: ER 11:40 → ED HOLD 15:15 → PCU 3S 22:45 → CICU 2S 11-18 02:28 → PCU 3S 11-19 11:30
PROVIDERS: ADMIT Family Medicine; ATTEND Family Medicine
PROC: 30233N1 Transfusion of Nonautologous Red Blood Cells into Peripheral Vein, Percutaneous Approach (ICD-10-PCS; 2023-11-14)
PROC: 0DB68ZX Excision of Stomach, Via Natural or Artificial Opening Endoscopic, Diagnostic (ICD-10-PCS; principal; 2023-11-15)
DX: K92.2 Gastrointestinal hemorrhage, unspecified (principal); I50.23 Acute on chronic systolic (congestive) heart failure; J18.9 Pneumonia, unspecified organism; N17.0 Acute kidney failure with tubular necrosis; J96.01 Acute respiratory failure with hypoxia; I13.0 Hypertensive heart and chronic kidney disease with heart failure and stage 1 through stage 4 chronic kidney disease, or unspecified chronic kidney disease; E87.1 Hypo-osmolality and hyponatremia; N18.4 Chronic kidney disease, stage 4 (severe); E87.4 Mixed disorder of acid-base balance; R65.10 Systemic inflammatory response syndrome (SIRS) of non-infectious origin without acute organ dysfunction; I25.10 Atherosclerotic heart disease of native coronary artery without angina pectoris; I50.814 Right heart failure due to left heart failure; E87.6 Hypokalemia; E83.39 Other disorders of phosphorus metabolism; I08.0 Rheumatic disorders of both mitral and aortic valves; E78.5 Hyperlipidemia, unspecified; E11.22 Type 2 diabetes mellitus with diabetic chronic kidney disease; T45.515A Adverse effect of anticoagulants, initial encounter; D50.9 Iron deficiency anemia, unspecified; K21.9 Gastro-esophageal reflux disease without esophagitis; Z66 Do not resuscitate; I48.91 Unspecified atrial fibrillation; I25.2 Old myocardial infarction; Z86.711 Personal history of pulmonary embolism; Y92.89 Other specified places as the place of occurrence of the external cause; Z88.2 Allergy status to sulfonamides; Z79.84 Long term (current) use of oral hypoglycemic drugs; Z79.4 Long term (current) use of insulin; Z79.899 Other long term (current) drug therapy; Z90.49 Acquired absence of other specified parts of digestive tract
CPT/HCPCS: 36415; 36430; 36600; 43239; 71045; 80053; 80061; 80305; 81001; 82248; 82728; 82803; 82948; 83010; 83036; 83540; 83550; 83605; 83615; 83735; 83880; 84100; 84145; 84484; 85007; 85008; 85018; 85025; 85027; 85045; 86885; 86900; 86901; 86920; 87040; 87081; 87088; 88305; 92508; 92616; 93005; 93306; 97110; 97162; 97164; 97530; 99152; 99285; A4314; A4615; A4620; A5200; A6212; A6449; C1758; G0378; J1200; J1250; J1815; J1940; J2250; J2405; J2470; J2543; J2919; J3010; J7030; J7040; J7050; J7120; P9016; P9047

== ENCOUNTER 2023-11-28 12:41 | Emergency (ER) | payer MEDICARE, OTHER ==
[~2023-11-28] VITALS: Ht 162.6 cm; Wt 84.4 kg
[~2023-11-28 12:41] MED LIST changes: +APIX2.5T PO; +ASCO-22 PO; +ASPI81TA52 PO; +CARV3.1289 PO; +CHOL100017 PO; +EMPA10TA PO; +FER325T PO; +INSU100C10 SQ; +LANTUS SQ; -LISI10TA27 PO; +LISI2.5T14 PO; -LOP25T PO; -METF-1203 PO; +MIDO10TA PO; -NPH,100V SQ; +PRED10TA23 PO; +SITA50TA7 PO; +VITA200T8 PO; +vitamin A PO
[2023-11-28 14:30] LABS: BASOPHILS % (AUTO) 0.2 % (0-1); EOSINOPHILS % (AUTO) 0.1 % (0-6); HEMATOCRIT 29.1 % (35.0-45.0); HEMOGLOBIN 8.9 g/dl (12.0-16.0); LYMPHOCYTES # (AUTO) 0.3 X10'3 (1.1-4.8); LYMPHOCYTES % (AUTO) 1.9 % (21-51); MEAN CORPUSCULAR HEMOGLOBIN 25.7 PG (27.0-31.0); MEAN CORPUSCULAR HGB CONC 30.5 g/dL (33.0-36.5); MEAN CORPUSCULAR VOLUME 84.4 FL (78-98); MEAN PLATELET VOLUME 9.3 FL (7.4-10.4); MONOCYTES # (AUTO) 0.2 X10'3 (0-0.9); MONOCYTES % (AUTO) 1.4 % (2-12); NEUTROPHILS # (AUTO) 14.7 X10'3 (1.8-7.7); NEUTROPHILS % (AUTO) 96.4 % (42-75); PLATELET COUNT 352 X10'3 (140-440); RED BLOOD COUNT 3.44 X10'6 (4.20-5.60); RED CELL DISTRIBUTION WIDTH 19.2 % (11.5-14.5); WHITE BLOOD COUNT 15.2 X10'3 (4.5-11.0)
[2023-11-28 14:50] LABS: ALANINE AMINOTRANSFERASE 19 U/L (12-78); ALBUMIN 3.3 G/DL (3.4-5.0); ALBUMIN/GLOBULIN RATIO 1.1 (1.1-1.5); ALKALINE PHOSPHATASE 58 IU/L (46-116); ANION GAP 12 (8-16); ASPARTATE AMINO TRANSFERASE 10 U/L (10-37); BLOOD UREA NITROGEN 63 MG/DL (7-18); BUN/CREATININE RATIO 38.2 (10.0-20.0); CHLORIDE 101 MMOL/L (99-107); CREATININE 1.65 MG/DL (0.40-0.90); GLUCOSE 367 MG/DL (70-104); MAGNESIUM 2.3 MG/DL (1.5-2.4); PHOSPHORUS 4.7 MG/DL (2.3-4.5); POTASSIUM 5.1 MMOL/L (3.5-5.1); SODIUM 134 MMOL/L (135-145); TOTAL CARBON DIOXIDE 21.4 MMOL/L (24-32); TOTAL PROTEIN 6.3 G/DL (6.4-8.2); eCRCL 22 ML/MIN; eGFR 30 ML/MIN
[2023-11-28 16:39] LABS: BILIRUBIN,URINE NEGATIVE (Neg); CLARITY,URINE SLIGHTLY CLOUDY (Clear); COLOR,URINE YELLOW (Yellow); GLUCOSE, URINE >=1000 mg/dl (Neg); KETONES,URINE NEGATIVE (Neg); LEUKOCYTE ESTERASE ,URINE NEGATIVE (Neg); NITRITES, URINE NEGATIVE (Neg); OCCULT BLOOD,URINE NEGATIVE (Neg); PH,URINE 5.5 (4.8-8.0); PROTEIN,URINE NEGATIVE (Neg); UROBILINOGEN,URINE 0.2 E.U/dL (0.2-1.0)
[2023-11-28 16:45] LABS: UA COLLECTION TYPE STRAIGHT CATH
[2023-11-28 16:47] LABS: SQUAMOUS EPITHELIAL CELL,UR MODERATE /LPF (FEW)
[2023-11-28 16:48] LABS: BACTERIA,URINE NONE SEEN /HPF (Neg); RBC,URINE 0-2 /HPF (0-2); TRANSITIONAL EPI CELLS,URINE FEW /HPF; WBC,URINE 0-4 /HPF (0-4); YEAST MANY /HPF (NEGATIVE)
[2023-11-28] MEDS: normal saline 1000ml 1,000 ML IV ONE (17:32)
[2023-11-28 17:58] VITALS: BP 128/66; PULSE 65; RESP 14; TEMP 97.5; O2SAT 98
== END 2023-11-28 18:24 | disposition home or self-care (01) ==
LOC: ER 12:42
DX: I63.9 Cerebral infarction, unspecified (principal); I25.2 Old myocardial infarction; Z51.5 Encounter for palliative care; Z88.2 Allergy status to sulfonamides; Z88.8 Allergy status to other drugs, medicaments and biological substances; Z79.899 Other long term (current) drug therapy; Z79.4 Long term (current) use of insulin; Z79.82 Long term (current) use of aspirin
CPT/HCPCS: 36415; 70450; 71045; 80053; 81001; 83735; 84100; 84484; 85025; 87077; 87088; 93005; 96360; 99285; J7030; A4353